=== PATIENT | male | born 1980 | race Caucasian/White ===

== ENCOUNTER 2017-01-28 16:12 | Emergency (ER) | payer MEDICAID, MEDICARE ==
[~2017-01-28] VITALS: Ht 182.9 cm; Wt 95.3 kg
[~2017-01-28 16:12] MED LIST: DIV250T PO; GABA300C PO; LAMO200T2 PO; [UNRECOGNIZED DRUG - CODE] PO
[2017-01-28 17:09] VITALS: BP 127/73
[2017-01-28] MEDS: cefTRIAXone SOD 1,000 MG VL IM ONE (17:43)
[2017-01-28] MEDS: methylPREDNISolone SOD SUCC 125 MG/2 ML VL IM ONE (17:43)
== END 2017-01-28 18:05 | disposition home or self-care (01) ==
LOC: ER 16:18
DX: J02.9 Acute pharyngitis, unspecified (principal); D70.9 Neutropenia, unspecified; Z79.899 Other long term (current) drug therapy
CPT/HCPCS: 96372; 99284; J0696; J2930

== ENCOUNTER 2017-07-13 10:05 | Emergency (ER) | payer MEDICARE ==
[~2017-07-13] VITALS: Ht 182.9 cm; Wt 86.2 kg
[2017-07-13 10:16] VITALS: BP 142/84
== END 2017-07-13 11:33 | disposition home or self-care (01) ==
LOC: ER 10:09
DX: L02.421 Furuncle of right axilla (principal)